=== PATIENT | female | born 1955 | race Caucasian/White ===

== ENCOUNTER 2016-10-24 15:41 | Emergency (ER) | payer BC ==
[~2016-10-24] VITALS: Ht 172.7 cm; Wt 76.4 kg
[~2016-10-24 15:41] MED LIST: ASPIRIN CHEWABL81 M1 PO; LEVOTHROID,S0.075 MG PO
[2016-10-24 16:41] LABS: HEMATOCRIT 41.4 % (36.0-46.0); MCH 29.4 PG (29.0-34.0); MCHC 33.3 G/DL (30.0-36.0); MCV 88.1 FL (83-99); MEAN PLAT.VOLUME 8.8 uM^3 (9.5-12.4); PLATELET COUNT 279 K/uL (156-360); RBC DIS.WIDTH-CV 12.2 % (11.8-14.6); RBC DIS.WIDTH-SD 39.7 % (39-53); WHITE BLOOD COUNT 6.6 K/uL (4.1-10.2)
[2016-10-24 16:50] LABS: CHLORIDE 104 mEq/L (99-109); POTASSIUM 4.3 mEq/L (3.7-5.4); SODIUM 138 mEq/L (136-147)
[2016-10-24 16:51] LABS: GLUCOSE 115 mg/dL (70-99)
[2016-10-24 16:53] LABS: ANION GAP 12 MEQ/L (2-14)
[2016-10-24 16:55] LABS: GFR ESTIMATE (CALCULATED) 49 mL/min/
[2016-10-24 16:56] LABS: UREA NITROGEN (BUN) 18 mg/dL (9-23)
[2016-10-24 17:17] LABS: TROP-I INTERPRETATION NEGATIVE; TROPONIN-I < 0.01 ng/mL (0.0-0.30)
[2016-10-24] MEDS ORDERED: MECLIZINE HCL25 MG PO (18:33)
[2016-10-24 19:29] VITALS: BP 145/73
== END 2016-10-24 19:36 | disposition home or self-care (01) ==
LOC: EME 15:41
PROVIDERS: Emergency Medicine
DX: G43.909 Migraine, unspecified, not intractable, without status migrainosus (principal); R42 Dizziness and giddiness; Z86.73 Personal history of transient ischemic attack (TIA), and cerebral infarction without residual deficits
CPT/HCPCS: 70450; 80048; 84484; 85027; 93005; 99281; 99285; J0461; J0780; J1200; J1885; J7030